=== PATIENT | male | born 1940 | race Two or more races ===

== ENCOUNTER 2018-07-15 11:32 | Inpatient (IN) | payer MEDICARE, OTHER ==
[~2018-07-15] VITALS: Ht 167.6 cm; Wt 62.1 kg
[2018-07-15 15:00] VITALS: BP 106/56
--- NOTE | 2018-07-15 15:00 | NUR ---
m/s wire puller: direct admit received this 78 yr old male pt via w/c accompanied by family and caregiver as a direct admit that was sent by dr. cooper with dx: uti, wounds. awake, alert to self, non-verbal, but able to follow simple directions. reality orientation provided prn. family providing h&p. oriented to room and surroundings. vss. noted with multiple wounds and photos taken. will continue to monitor.
[2018-07-15 16:00] VITALS: BP 106/56
--- NOTE | 2018-07-15 16:30 | NUR ---
m/s compounder helper: Notes all orders carried out and acknowledged. orders faxed to pharmacy.
[2018-07-15] MEDS ORDERED: QUET50TA PO (16:48)
[2018-07-15] MEDS ORDERED: MEMA10TA PO (16:48)
[2018-07-15] MEDS ORDERED: TRAZ300T2 PO (16:48)
[2018-07-15] MEDS ORDERED: ESCI10TA PO (16:48)
[2018-07-15] MEDS ORDERED: SERT100T PO (16:48)
[2018-07-15] MEDS ORDERED: TERB250T52 PO (16:48)
[2018-07-15] MEDS ORDERED: MELA3TAB PO (16:48)
[2018-07-15] MEDS ORDERED: LORA0.5T PO (16:48)
[2018-07-15] MEDS ORDERED: TAMS-12 PO (16:48)
[2018-07-15] MEDS ORDERED: Medication Not On Formulary EA (Melatonin 3 MG) PO SCH (17:00)
--- NOTE | 2018-07-15 17:00 | NUR ---
m/s zinc etcher: notes lab aid at bedside, but unable to draw lab at this time. will send someone later as stated.
[2018-07-15] MEDS ORDERED: ONDANSETRON HCL/PF 4 MG/2 ML VIAL IVP PRN (17:30)
--- NOTE | 2018-07-15 17:55 | NUR ---
M/S LAPEL BASTER: MD VISIT DR. BLISS AT BEDSIDE AT THIS TIME. REMAINS AT BEDSIDE AND UPDATED PLAN OF CARE.
[2018-07-15] MEDS: IV NS 0.9% 1,000 ML IV PRN (17:57)
--- NOTE | 2018-07-15 18:00 | NUR ---
M/S TALENT ACQUISITION ASSOCIATE: NOTES MRSA SUIRVELLANCE TO BOTH NOSTRILS AND SENT TO LAB.
--- NOTE | 2018-07-15 18:10 | NUR ---
M/S HAND MOLDER AND CASTER: NOTES F/C [id number] INSERTED VIA ASEPTIC TECHNIQUE, VERONICA. WELL AND OBTAINED 400ML OF CLEAR YELLOW URINE. F/C TO GRAVITY. REMAINS AT BEDSIDE. WILL CONTINUE TO MONITOR.
[2018-07-15] MEDS: CEFTRIAXONE 1 G in IV D5W 50 ML IV SCH (18:30)
--- NOTE | 2018-07-15 18:30 | NUR ---
M/S METER RECORD CLERK: NOTES TERENCE (PHYSICAL THERAPY RESIDENT) AT BEDSIDE AND STILL UNABLE TO DRAW BLOOD, WILL SEND SOMEONE AGAIN BEFORE 8PM STATED. FAMILY REMAINS AT BEDSIDE. WILL CONTINUE TO MONITOR.
--- NOTE | 2018-07-15 18:50 | NUR ---
m/s butcher's assistant: notes dr. powers and dr. soares notified re: consult.
--- NOTE | 2018-07-15 19:00 | NUR ---
RECIEVED IN BED ALERT TO SELF. FAMILY AT THE BEDSIDE. SMILED WHEN I INTRODUCED MYSELF. IV FLUIDS INFUSING.
--- NOTE | 2018-07-15 19:00 | NUR ---
m/s security systems engineer: notes bedside report given to jose (rn) for continuity of care.
[2018-07-15] MEDS ORDERED: VANCOMYCIN 1 GM in IV D5W 250ml IV ONE (19:30)
[2018-07-15 20:00] VITALS: BP 129/64
[2018-07-15] MEDS ORDERED: FEE PK DOSING 1 MIN EA MC ONE (20:02)
[2018-07-15] MEDS ORDERED: ENOXAPARIN SODIUM 30 MG/0.3 ML DISP.SYRIN SQ SCH (21:00)
[2018-07-15 21:12] LABS: BASOPHILS % (AUTO) 0.3 % (0.0-2.0); EOSINOPHILS % (AUTO) 0.5 % (0.0-6.0); HEMATOCRIT 35 % (39-51); HEMOGLOBIN 11.6 g/dL (13.5-17.5); LYMPHOCYTES # (AUTO) 1.8 /CMM (0.8-4.8); LYMPHOCYTES % (AUTO) 15.6 % (20.0-44.0); MEAN CORPUSCULAR HGB CONC 33 g/dl (31.0-36.0); MEAN CORPUSCULAR VOLUME 90 fL (80-96); MONOCYTES # (AUTO) 0.9 /CMM (0.1-1.30); MONOCYTES % (AUTO) 7.5 % (2.0-12.0); NEUTROPHILS # (AUTO) 8.7 /CMM (1.8-8.9); NEUTROPHILS % (AUTO) 76.1 % (43.0-81.0); PLATELET COUNT (AUTO) 404 /CMM (150-450); RED BLOOD CELL COUNT(AUTO) 3.91 MIL/uL (4.5-6.0); WHITE BLOOD COUNT (AUTO) 11.4 K/uL (4.3-11.0)
[2018-07-15] MEDS: QUETIAPINE FUMARATE 25 MG TABLET PO SCH (21:26)
[2018-07-15] MEDS: TRAZODONE 50 MG TABLET PO SCH (21:26)
[2018-07-15 21:28] LABS: ALANINE AMINOTRANSFERASE 75 U/L (12-78); ALBUMIN 2.4 g/dL (3.4-5.0); ALKALINE PHOSPHATASE 77 U/L (46-116); ASPARTATE AMINOTRANSFERASE 61 U/L (15-37); BILIRUBIN,TOTAL 0.2 mg/dL (0.2-1.0); CALCIUM, SERUM 8.6 mg/dL (8.5-10.1); CARBON DIOXIDE 30 mmol/L (21-32); CHLORIDE 100 mmol/L (98-107); CREATININE 0.9 mg/dL (0.6-1.3); GLUCOSE 119 mg/dL (74-106); POTASSIUM 4.3 mmol/L (3.5-5.1); SODIUM SERUM 134 mmol/L (136-145); TOTAL PROTEIN, SERUM 6.7 g/dL (6.4-8.2); UREA NITROGEN, BLOOD 25 mg/dL (7-18)
[2018-07-15 21:50] LABS: PREALBUMIN 19.7 MG/DL (18.0-35.7)
[2018-07-16 00:41] LABS: APPEARANCE,URINE CLEAR (CLEAR); BILIRUBIN,URINE NEGATIVE (NEGATIVE); BLOOD, URINE TRACE-INTA Ery/uL (NEGATIVE); COLOR,URINE YELLOW (YELLOW); KETONES,URINE NEGATIVE (NEGATIVE); LEUKOCYTE ESTERASE ,URINE NEGATIVE (NEGATIVE); NITRITE, URINE NEGATIVE (NEGATIVE); PROTEIN,URINE NEGATIVE (NEGATIVE); UGLUCOSE NEGATIVE (NEGATIVE); UROBILINOGEN,URINE 0.2 EU/dL (0.2)
[2018-07-16 00:45] LABS: BACTERIA,URINE Few /HPF (None Seen); RBC,URINE 21-50 /HPF (0-2); SQUAMOUS EPITHELIAL CELL,UR Rare /HPF (None Seen)
--- NOTE | 2018-07-16 05:28 | NUR ---
MR. PARSONS HAS SUPPORTIVE AND CHILDREN, THEY WERE AT HIS BEDSIDE AT THE BEGINNING OF THE SHIFT. WHEN OFFERED PATIENT FLUIDS HE PINCHES HIS LIPS TOGETHER. USED A MEDICINE CUP AND WAS ABLE TO CONVINCE HIM TO DRINK AND TAKE HIS CRUSHED MEDICATION. ASPIRATION PRECAUTIONS AT ALL TIMES. AFTER 2 SIPS HE WOULD TURN HIS HEAD AWAY WHEN HE SAW THE CUP . BUI DRAINAGE 1500. HE WILL HOLD ON TO THE BUI CATHETER WHEN HE DISCOVERS THE TUBING. NON VERBAL. ATB ORDERED. MULTIPLE BED SORES THROUGH OUT THE BODY TO BE SEEN BY THE WOUND NURSE ORDER PLACED
[2018-07-16 06:26] LABS: BASOPHILS % (AUTO) 0.2 % (0.0-2.0); EOSINOPHILS % (AUTO) 0.8 % (0.0-6.0); HEMATOCRIT 37 % (39-51); HEMOGLOBIN 12.5 g/dL (13.5-17.5); LYMPHOCYTES # (AUTO) 2.1 /CMM (0.8-4.8); LYMPHOCYTES % (AUTO) 22.2 % (20.0-44.0); MEAN CORPUSCULAR HGB CONC 33 g/dl (31.0-36.0); MEAN CORPUSCULAR VOLUME 89 fL (80-96); MONOCYTES # (AUTO) 0.7 /CMM (0.1-1.30); MONOCYTES % (AUTO) 7.2 % (2.0-12.0); NEUTROPHILS # (AUTO) 6.4 /CMM (1.8-8.9); NEUTROPHILS % (AUTO) 69.6 % (43.0-81.0); PLATELET COUNT (AUTO) 375 /CMM (150-450); RED BLOOD CELL COUNT(AUTO) 4.19 MIL/uL (4.5-6.0); WHITE BLOOD COUNT (AUTO) 9.2 K/uL (4.3-11.0)
[2018-07-16 06:47] LABS: CALCIUM, SERUM 8.8 mg/dL (8.5-10.1); CARBON DIOXIDE 32 mmol/L (21-32); CHLORIDE 102 mmol/L (98-107); CREATININE 0.8 mg/dL (0.6-1.3); GLUCOSE 91 mg/dL (74-106); MAGNESIUM 2.1 mg/dL (1.8-2.4); POTASSIUM 3.9 mmol/L (3.5-5.1); SODIUM SERUM 141 mmol/L (136-145); UREA NITROGEN, BLOOD 18 mg/dL (7-18)
[2018-07-16] MEDS ORDERED: Z GUARD REMEDY 2 OZ OINT TP PRN (07:00)
--- NOTE | 2018-07-16 07:41 | NUR ---
MS RN OPENING NOTES RECEIVED PT LAYING IN BED WITH HOB ELEVATED. PT IS AWAKE, A/OX1 AFEBRILE. RESPIRATIONS ARE EVEN AND UNLABORED, NOT IN ANY ACUTE DISTRESS NOTED. NO FACIAL GRIMACING OR MOANING NOTED. IV SITE TO RIGHT WRIST INTACT, NO INFILTRATION NOTED. DRESSING KEPT CLEAN AND DRY. BUI CATH IN PLACE, TUBING FREE OF KINKS, DRAINING CLEAR ORANGE URINE. SAFETY MEASURES ARE IN PLACE. WILL REPOSITION PER PROTOCOL. INSTRUCTED PT TO USE CALL LIGHT WHEN ASSISTANCE IS NEEDED, CALL LIGHT IS LEFT WITHIN REACH. WILL MONITOR THROUGHOUT SHIFT FOR CONTINUITY OF CARE.
[2018-07-16 07:59] VITALS: BP 117/67
[2018-07-16 08:43] VITALS: BP 117/67
[2018-07-16] MEDS ORDERED: ESCITALOPRAM OXALATE (10 MG) 10 MG TABLET PO SCH (09:00)
[2018-07-16] MEDS: VANCOMYCIN HCL 0.75 GM in IV D5W 250 ML IV SCH ×2 (09:02→20:24)
[2018-07-16] MEDS: IV NS 0.9% 1,000 ML IV PRN (09:03)
[2018-07-16] MEDS: Z GUARD REMEDY 2 OZ OINT TP SCH (09:03)
[2018-07-16] MEDS: SERTRALINE HCL 50 MG TABLET PO SCH ×2 (09:04→17:00)
[2018-07-16] MEDS: TAMSULOSIN 0.4 MG CAP.SR.24H PO SCH (09:04)
[2018-07-16] MEDS: TERBINAFINE HCL 250 MG TABLET PO SCH (09:04)
[2018-07-16] MEDS: MEMANTINE HCL 5 MG TABLET PO SCH ×2 (09:04→17:00)
[2018-07-16] MEDS ORDERED: VANCOMYCIN 1 GM in IV D5W 250 ML IV SCH (14:00)
--- NOTE | 2018-07-16 15:11 | NUR ---
Social service consult requested by Dr. Ramachandran for multiple wounds. Pt. is a 78 year old male who was admitted to [facility] for UTI and wounds. SW met with pt's bedside. Pt's Ruchi is very pleasant and cooperative with SW. Ruchi states pt. resides with her and has been receiving wound care from a home health agency several days per week. According to Ruchi, pt. has dementia and seems to have medically deteriorated in the last few days. She states pt's immune system is very weak, and pt. doesn't eat or sleep well at night. Pt. seems to have a very supportive and family and appears to have a difficult time managing pt's care due to his medical condition. CHRISSY spoke with Dr. Ramachandran who will recommend SNF placement. CHRISSY updated case packer and sealer Anca with the aforementioned information.
[2018-07-16] MEDS: CEFTRIAXONE 1 G in IV D5W 50 ML IV SCH (17:00)
--- NOTE | 2018-07-16 18:27 | NUR ---
MS RN CLOSING NOTES ALL DUE MEDS GIVEN, NEEDS ANTICIPATED. PT IS A/OX1 AFEBRILE. RESPIRATIONS ARE EVEN AND UNLABORED, NOT IN ANY ACUTE DISTRESS NOTED. NO FACIAL GRIMACING OR MOANING NOTED. IV SITE TO RIGHT WRIST INTACT, NO INFILTRATION NOTED. DRESSING KEPT CLEAN AND DRY. BUI CATH IN PLACE, TUBING FREE OF KINKS. DRAINING CLEAR PINK TINGED URINE. SAFETY MEASURES ARE IN PLACE. REPOSITIONED PER PROTOCOL. REMINDED PT TO USE CALL LIGHT, CALL LIGHT IS LEFT WITHIN REACH. BED IS IN ITS LOWEST AND LOCKED POSITION. WILL ENDORSE TO NEXT SHIFT FOR CONTINUITY OF CARE.
[2018-07-16] MEDS: LORAZEPAM 0.5 MG TABLET PO PRN (18:50)
--- NOTE | 2018-07-16 19:40 | NUR ---
MS RN NOTE: PATIENT RESTING IN BED, NO ACUTE DISTRESS NOTED. BREATHING EVEN AND UNLABORED, NO SOB NOTED. IV TO RIGHT WRIST IN PLACE, INFUSING NS AT 75 ML/HR. BUI CATHETER IN PLACE, EMPTY AT THIS TIME. BED LOCKED AND IN LOWEST POSITION, CALL LIGHT IN REACH. WILL CONTINUE TO MONITOR.
[2018-07-16 20:00] VITALS: BP 137/68
[2018-07-16] MEDS: TRAZODONE 50 MG TABLET PO SCH (21:54)
[2018-07-16] MEDS: QUETIAPINE FUMARATE 25 MG TABLET PO SCH (21:54)
[2018-07-16] MEDS: ENOXAPARIN SODIUM 40 MG/0.4 ML DISP.SYRIN SQ SCH (21:56)
[2018-07-16] MEDS ORDERED: SILVER NITRATE APPLICATOR 1 EA BOX TP ONE (23:30)
[2018-07-16] MEDS ORDERED: LIDOCAINE 1%-EPI 1:100,000 20 ML VIAL TP ONE (23:30)
--- NOTE | 2018-07-17 00:30 | NUR ---
MS RN NOTE: NOTED WITH NEW ORDERS TO OBTAIN CONSENT FOR DEBRIDEMENT OF SACRUM/BILATERAL BUTTOCK WOUNDS WITH DR. BROWN AND DR. HAWK. PATIENT UNABLE TO SIGN FOR CONSENT DUE TO MENTAL STATUS. WILL CONTACT FAMILY IN MORNING FOR CONSENT. WILL CONTINUE TO MONITOR.
--- NOTE | 2018-07-17 06:15 | NUR ---
MS RN NOTE: PATIENT RESTING IN BED, NO ACUTE DISTRESS NOTED. BREATHING EVEN AND UNLABORED, NO SOB NOTED. IV TO RIGHT WRIST IN PLACE, INFUSING NS AT 75 ML/HR. BUI CATHETER IN PLACE. BED LOCKED AND IN LOWEST POSITION, CALL LIGHT IN REACH. WILL ENDORSE TO DAY NURSE TO CONTINUE WITH PLAN OF CARE.
[2018-07-17] MEDS ORDERED: HYDROGEL DRESSING 90 GM TUBE TP PRN (07:00)
--- NOTE | 2018-07-17 07:29 | NUR ---
MS RN OPENING NOTES RECEIVED PT LAYING IN BED WITH HOB ELEVATED. PT IS AWAKE AND RESPONSIVE, AFEBRILE. RESPIRATIONS ARE EVEN AND UNLABORED, NOT IN ANY ACUTE DISTRESS NOTED. NO FACIAL GRIMACING OR MOANING NOTED. IV SITE TO RIGHT WRIST INTACT, NO INFILTRATION NOTED. DRESSING KEPT CLEAN AND DRY. BUI CATH IN PLACE, TUBING FREE OF KINKS, DRAINING CLEAR PINK TINGED URINE. SAFETY MEASURES ARE IN PLACE. WILL REPOSITION PER PROTOCOL. INSTRUCTED PT TO USE CALL LIGHT WHEN ASSISTANCE IS NEEDED, CALL LIGHT IS LEFT WITHIN REACH. WILL MONITOR THROUGHOUT SHIFT FOR CONTINUITY OF CARE.
[2018-07-17 07:48] LABS: CALCIUM, SERUM 8.6 mg/dL (8.5-10.1); CARBON DIOXIDE 29 mmol/L (21-32); CHLORIDE 103 mmol/L (98-107); CREATININE 0.6 mg/dL (0.6-1.3); GLUCOSE 90 mg/dL (74-106); POTASSIUM 3.5 mmol/L (3.5-5.1); SODIUM SERUM 141 mmol/L (136-145); UREA NITROGEN, BLOOD 11 mg/dL (7-18)
[2018-07-17 08:00] VITALS: BP 123/71
--- NOTE | 2018-07-17 08:17 | NUR ---
WOUND CARE CONSULT WOUND CARE RECEIVED CONSULT FOR MULTIPLE WOUNDS. WOUND CARE WILL DEFER CONSULT AND ALL TREATMENT PLANS TO PLASTIC SURGICAL TEAM INCLUDING DPM DR NOBLE WHO ARE ALL CURRENTLY FOLLOWING THIS PATIENT. PATIENT WITH TERRANCE AT 12, ALL PRESSURE ULCER PREVENTION MEASURES ARE NOTED TO BE IN PLACE. WILL SEE PRN.
[2018-07-17] MEDS: VANCOMYCIN HCL 0.75 GM in IV D5W 250 ML IV SCH ×2 (08:39→20:05)
[2018-07-17] MEDS: TAMSULOSIN 0.4 MG CAP.SR.24H PO SCH (08:40)
[2018-07-17] MEDS: TERBINAFINE HCL 250 MG TABLET PO SCH (08:40)
[2018-07-17] MEDS: MEMANTINE HCL 5 MG TABLET PO SCH ×2 (08:40→17:42)
[2018-07-17] MEDS: SERTRALINE HCL 50 MG TABLET PO SCH ×2 (08:40→17:42)
[2018-07-17] MEDS: HYDROGEL DRESSING 90 GM TUBE TP SCH (08:41)
[2018-07-17] MEDS: Z GUARD REMEDY 2 OZ OINT TP SCH (08:42)
[2018-07-17] MEDS: IV NS 0.9% 1,000 ML IV PRN (08:45)
[2018-07-17] MEDS: ENSURE ENLIVE CHOC 237 ML CAN PO SCH ×3 (09:16→17:42)
[2018-07-17 15:53] VITALS: BP 119/55
[2018-07-17] MEDS: ACETAMINOPHEN 325 MG TABLET PO PRN (17:56)
[2018-07-17] MEDS: LORAZEPAM 0.5 MG TABLET PO PRN (17:56)
--- NOTE | 2018-07-17 19:45 | NUR ---
MS RN NOTES RECEIVED ON BED A/O X1,SERBIAN SPEAKING,[facility] ON RIGHT EAR PER .IVF IN PROGRESS VIA IVP ON RIGHT WRIST,SITE PATENT.WITH BUI CATH IN PLACE DRAINING PINKISH OUTPUT.ON KCI MATTRESS FOR WOUND MANAGEMENT.NPO STATUS POST MIDNIGHT FOR WOUND DEBRIDEMENT TOMORROW.CONSENT ON CHART.REPOSITION PER PROTOCOL.WILL CONTINUE TO MONITOR STATUS.
[2018-07-17 20:00] VITALS: BP 102/71
[2018-07-17] MEDS: ENOXAPARIN SODIUM 40 MG/0.4 ML DISP.SYRIN SQ SCH (21:00)
[2018-07-17] MEDS: TRAZODONE 50 MG TABLET PO SCH (21:26)
[2018-07-17] MEDS: QUETIAPINE FUMARATE 25 MG TABLET PO SCH (21:26)
[2018-07-18] MEDS: IV NS 0.9% 1,000 ML IV PRN ×2 (01:13→20:42)
--- NOTE | 2018-07-18 06:52 | NUR ---
MS RN NOTES SLEPT WELL WITH TRAZODONE,NO FALL,NO INJURY.IVF IN PROGRESS.BUI CATHETER DRAINS WELL WITH PINKISH URINE OUTPUT.NPO FOR SACRAL WOUND DEBRIDEMENT TODAY.IN NO ACUTE DISTRESS.WILL ENDORSE TO DAY NURSE FOR MARGAUX.
--- NOTE | 2018-07-18 07:25 | NUR ---
MS RN NOTES PATIENT RECEIVED RESTING INSIDE ROOM. SLEEPING, EASILY AROUSABLE THROUGH VERBAL AND TACTILE STIMULI. BREATHING EVEN AND UNLABORED. NO ACUTE DISTRESS AT THIS TIME. NO CHANGES IN LOC NOTED AT THIS TIME. DENIES ANY PAIN OR DISCOMFORT. IV INTACT AND PATENT. WILL CONTINUE TO MONITOR. BED LOCKED AND IN LOW POSITION. BILATERAL UPPER SIDE RAILS UP AND LOCKED. CALL LIGHT WITHIN EASY REACH
[2018-07-18] MEDS: ENSURE ENLIVE CHOC 237 ML CAN PO SCH ×3 (07:53→16:22)
[2018-07-18] MEDS: VANCOMYCIN HCL 0.75 GM in IV D5W 250 ML IV SCH ×2 (07:53→20:15)
[2018-07-18] MEDS: SERTRALINE HCL 50 MG TABLET PO SCH ×2 (08:11→16:22)
[2018-07-18] MEDS: TERBINAFINE HCL 250 MG TABLET PO SCH (08:11)
[2018-07-18] MEDS: MEMANTINE HCL 5 MG TABLET PO SCH ×2 (08:11→16:22)
[2018-07-18] MEDS: TAMSULOSIN 0.4 MG CAP.SR.24H PO SCH (08:11)
[2018-07-18] MEDS: HYDROGEL DRESSING 90 GM TUBE TP SCH (08:12)
[2018-07-18] MEDS: Z GUARD REMEDY 2 OZ OINT TP SCH (08:13)
[2018-07-18 08:30] VITALS: BP 137/90
[2018-07-18 10:34] LABS: CALCIUM, SERUM 8.8 mg/dL (8.5-10.1); CARBON DIOXIDE 32 mmol/L (21-32); CHLORIDE 100 mmol/L (98-107); CREATININE 0.7 mg/dL (0.6-1.3); GLUCOSE 139 mg/dL (74-106); POTASSIUM 3.6 mmol/L (3.5-5.1); SODIUM SERUM 138 mmol/L (136-145); UREA NITROGEN, BLOOD 12 mg/dL (7-18)
--- NOTE | 2018-07-18 11:30 | NUR ---
MS RN NOTES PATIENT SEEN BY DR. EM, WOUND DEBRIDEMENT DONE ON SACRAL/BILATERAL BUTTOCK WOUNDS. PATIENT TOLERATED PROCEDURE WELL. KELLY AT BEDSIDE AND AWARE OF PROCEDURE. S/P DEBRIDEMENT PICTURES TAKEN AND FILED. REPLACED DRESSINGS. KEPT SITES CLEAN AND DRY. WILL CONTINUE TO MONITOR
[2018-07-18 16:00] VITALS: BP 104/66
--- NOTE | 2018-07-18 18:52 | NUR ---
MS RN NOTES PATIENT RESTING INSIDE ROOM. SLEEPING, EASILY AROUSABLE THROUGH VERBAL AND TACTILE STIMULI. BREATHING EVEN AND UNLABORED. NO CHANGES IN LOC NOTED AT THIS TIME. PATIENT ALERT AND ORIENTED X 1, RE-ORIENTED NEEDED. BUI CATHETER IN PLACE. IV INTACT AND PATENT. WILL ENDORSE TO INCOMING SHIFT FOR MARGAUX. BED LOCKED AND IN LOW POSITION. BILATERAL UPPER SIDE RAILS UP AND LOCKED. CALL LIGHT WITHIN EASY REACGH
[2018-07-18] MEDS: ACETAMINOPHEN 325 MG TABLET PO PRN (19:12)
--- NOTE | 2018-07-18 19:26 | NUR ---
MS RN RECEIVE PT IN BED. A/O X 1. CHINESE SPEAKING. RESPIRATIONS EVEN AND UNLABORED, NO SOB NOTED, NO DISTRESS, SAFETY MEASURES IN PLACE. WILL CONTINUE TO MONITOR. Addendum: 07/18/18 at 1943 by SHAHRIAR DELAROSA RN MISTAKEN ENTRY: DISREGARD THIS DOCUMENTATION THIS IS FOR DIFFERENT PT
--- NOTE | 2018-07-18 19:45 | NUR ---
MS RN NOTES RECEIVED ON BED RESTLESS,A/O X1,CONFUSED,TRYING TO GET OUT OF BED,BUI CATH IN PLACE DRAINING BLOOD TINGED OUTPUT.SALINE LOCK RIGHT WRIST INTACT AND PATENT,NS AT 35ML/HR RATE IN PROGRESS.S/P WOUND DEBRIDEMENT ON SACRAL AREA,KCI MATTRESS IN USED FOR WOUND MANAGEMENT.WILL CONTINUE TO MONITOR STATUS.
[2018-07-18 20:00] VITALS: BP 111/70
--- NOTE | 2018-07-18 20:00 | NUR ---
MS RN NOTES TRYING TO PULL OUT HIS BUI,MITTENS APPLIED ON BOTH HANDS,WILL GET ORDER.
[2018-07-18] MEDS: LORAZEPAM 0.5 MG TABLET PO PRN (20:17)
--- NOTE | 2018-07-18 20:17 | NUR ---
MS RN NOTES RESTLESS,ATIVAN 0.5MG PO GIVEN WITH MILK,TAKEN WELL.FALL PRECAUTION OBSERVED.
[2018-07-18 20:33] VITALS: BP 111/70
[2018-07-18] MEDS: TRAZODONE 50 MG TABLET PO SCH (21:24)
[2018-07-18] MEDS: ENOXAPARIN SODIUM 40 MG/0.4 ML DISP.SYRIN SQ SCH (21:24)
[2018-07-18] MEDS: QUETIAPINE FUMARATE 25 MG TABLET PO SCH (21:25)
--- NOTE | 2018-07-19 02:00 | NUR ---
MS RN NOTES CALM AND QUIET THIS TIME,TRAZODONE EFFECTIVE ALONG WITH SEROQUEL.HAND MITTENS REMOVED THIS TIME.
--- NOTE | 2018-07-19 06:28 | NUR ---
MS RN NOTES IVF IN PROGRESS,REPOSITION PER PROTOCOL,ACCEPTED AT [facility].IN NO ACUTE DISTRESS.
--- NOTE | 2018-07-19 07:55 | NUR ---
MS RN NOTES PATIENT RECEIVED RESTING INSIDE ROOM. AWAKE, ALERT AND ORIENTED TO SELF. HAITIAN SPEAKING ONLY. PATIENT VERBALLY RESPONSIVE AND RESPONDS TO VERBAL AND TACTILE STIMULI. PATIENT REORIENTED NEEDED. BREATHING EVEN AND UNLABORED. NO ACUTE DISTRESS AT THIS TIME. BILATERAL MITTENS IN PLACE. BUI CATHETER IN PLACE. WILL CONTINUE TO MONITOR. BED LOCKED AND IN LOW POSITION. BED ALARM ON. BILATERAL UPPER SIDE RAILS UP AND LOCKED. CALL LIGHT WITHIN EASY REACH
[2018-07-19 08:00] VITALS: BP 126/85
[2018-07-19 08:10] LABS: BASOPHILS % (AUTO) 0.3 % (0.0-2.0); EOSINOPHILS % (AUTO) 3.9 % (0.0-6.0); HEMATOCRIT 39 % (39-51); HEMOGLOBIN 13.1 g/dL (13.5-17.5); LYMPHOCYTES # (AUTO) 1.9 /CMM (0.8-4.8); LYMPHOCYTES % (AUTO) 17.3 % (20.0-44.0); MEAN CORPUSCULAR HGB CONC 33 g/dl (31.0-36.0); MEAN CORPUSCULAR VOLUME 90 fL (80-96); MONOCYTES # (AUTO) 0.9 /CMM (0.1-1.30); MONOCYTES % (AUTO) 8.1 % (2.0-12.0); NEUTROPHILS # (AUTO) 7.6 /CMM (1.8-8.9); NEUTROPHILS % (AUTO) 70.4 % (43.0-81.0); PLATELET COUNT (AUTO) 351 /CMM (150-450); RED BLOOD CELL COUNT(AUTO) 4.37 MIL/uL (4.5-6.0); WHITE BLOOD COUNT (AUTO) 10.8 K/uL (4.3-11.0)
[2018-07-19] MEDS: TAMSULOSIN 0.4 MG CAP.SR.24H PO SCH (08:19)
[2018-07-19] MEDS: MEMANTINE HCL 5 MG TABLET PO SCH ×2 (08:19→17:04)
[2018-07-19] MEDS: VANCOMYCIN HCL 0.75 GM in IV D5W 250 ML IV SCH ×2 (08:20→20:29)
[2018-07-19] MEDS: SERTRALINE HCL 50 MG TABLET PO SCH ×2 (08:20→17:04)
[2018-07-19] MEDS: TERBINAFINE HCL 250 MG TABLET PO SCH (08:20)
[2018-07-19] MEDS: ENSURE ENLIVE CHOC 237 ML CAN PO SCH ×3 (08:20→17:04)
[2018-07-19] MEDS: HYDROGEL DRESSING 90 GM TUBE TP SCH (08:21)
[2018-07-19] MEDS: Z GUARD REMEDY 2 OZ OINT TP SCH (08:21)
[2018-07-19 08:34] LABS: CALCIUM, SERUM 8.9 mg/dL (8.5-10.1); CARBON DIOXIDE 31 mmol/L (21-32); CHLORIDE 103 mmol/L (98-107); CREATININE 0.7 mg/dL (0.6-1.3); GLUCOSE 94 mg/dL (74-106); POTASSIUM 3.9 mmol/L (3.5-5.1); SODIUM SERUM 141 mmol/L (136-145); UREA NITROGEN, BLOOD 13 mg/dL (7-18)
[2018-07-19] MEDS: ACETAMINOPHEN 325 MG TABLET PO PRN (11:22)
[2018-07-19 16:07] VITALS: BP 118/59
--- NOTE | 2018-07-19 18:26 | NUR ---
MS RN NOTES PATIENT RESTING INSIDE ROOM. AWAKE, ALERT AND ORIENTED TO SELF. REORIENTED NEEDED. BREATHING EVEN AND UNLABORED. DENIES ANY PAIN OR DISCOMFORT AT THIS TIME. NO ACUTE DISTRESS NOTED. BILATERAL MITTENS IN PLACE DUE TO PATIENT REMOVING LINES AND EQUIPMENT. SKIN CHECKS DONE. IV INTACT AND PATENT. PATIENT KEPT CLEAN, DRY AND COMFORTABLE. WILL ENDORSE TO INCOMING SHIFT FOR MARGAUX. BED LOCKED AND IN LOW POSITION. BILATERAL UPPER SIDE RAILS UP AND LOCKED. CALL LIGHT WITHIN EASY REACH
--- NOTE | 2018-07-19 19:30 | NUR ---
MS RN NOTE: PATIENT RESTING IN BED, NO ACUTE DISTRESS NOTED. BREATHING EVEN AND UNLABORED, NO SOB NOTED. IV TO RIGHT WRIST IN PLACE, INFUSING NS AT 35 ML/HR. BUI CATHETER IN PLACE, EMPTY AT THIS TIME. BILATERAL MITTENS IN PLACE, WITH GOOD CIRCULATION NOTED. BED LOCKED AND IN LOWEST POSITION, CALL LIGHT IN REACH. WILL CONTINUE TO MONITOR.
[2018-07-19 20:00] VITALS: BP 102/64
[2018-07-19] MEDS: ENOXAPARIN SODIUM 40 MG/0.4 ML DISP.SYRIN SQ SCH (21:21)
[2018-07-19] MEDS: QUETIAPINE FUMARATE 25 MG TABLET PO SCH (21:21)
[2018-07-19] MEDS: TRAZODONE 50 MG TABLET PO SCH (21:22)
--- NOTE | 2018-07-19 23:30 | NUR ---
MS RN NOTE: PATIENT IV NOTED LEAKING, REMOVED, COVERED WITH GAUZE, PRESSURE APPLIED, AND SECURED WITH TAPE. NEW IV STARTED TO RIGHT FOREARM #22 WITH GOOD BLOOD RETURN. WILL CONTINUE TO MONITOR.
[2018-07-20] MEDS: IV NS 0.9% 1,000 ML IV PRN (03:55)
--- NOTE | 2018-07-20 06:05 | NUR ---
MS RN NOTE: PATIENT RESTING IN BED, NO ACUTE DISTRESS NOTED. BREATHING EVEN AND UNLABORED, NO SOB NOTED. IV TO RIGHT FOREARM IN PLACE, INFUSING NS AT 35 ML/HR. BUI CATHETER IN PLACE. BILATERAL MITTENS IN PLACE, WITH GOOD CIRCULATION NOTED. BED LOCKED AND IN LOWEST POSITION, CALL LIGHT IN REACH. WILL ENDORSE TO DAY NURSE TO CONTINUE WITH PLAN OF CARE.
[2018-07-20 07:30] LABS: BASOPHILS % (AUTO) 0.2 % (0.0-2.0); HEMATOCRIT 36 % (39-51); LYMPHOCYTES # (AUTO) 1.9 /CMM (0.8-4.8); LYMPHOCYTES % (AUTO) 18.5 % (20.0-44.0); MEAN CORPUSCULAR HGB CONC 33 g/dl (31.0-36.0); MEAN CORPUSCULAR VOLUME 90 fL (80-96); MONOCYTES # (AUTO) 0.8 /CMM (0.1-1.30); MONOCYTES % (AUTO) 8.1 % (2.0-12.0); NEUTROPHILS # (AUTO) 7.1 /CMM (1.8-8.9); NEUTROPHILS % (AUTO) 69.2 % (43.0-81.0); PLATELET COUNT (AUTO) 348 /CMM (150-450); RED BLOOD CELL COUNT(AUTO) 4.05 MIL/uL (4.5-6.0); WHITE BLOOD COUNT (AUTO) 10.2 K/uL (4.3-11.0)
[2018-07-20 07:35] LABS: CALCIUM, SERUM 8.5 mg/dL (8.5-10.1); CARBON DIOXIDE 30 mmol/L (21-32); CHLORIDE 102 mmol/L (98-107); CREATININE 0.7 mg/dL (0.6-1.3); GLUCOSE 92 mg/dL (74-106); POTASSIUM 3.9 mmol/L (3.5-5.1); SODIUM SERUM 138 mmol/L (136-145); UREA NITROGEN, BLOOD 14 mg/dL (7-18)
[2018-07-20 08:11] VITALS: BP 115/76
[2018-07-20] MEDS: VANCOMYCIN HCL 0.75 GM in IV D5W 250 ML IV SCH ×2 (08:43→19:51)
[2018-07-20] MEDS: TERBINAFINE HCL 250 MG TABLET PO SCH (08:59)
[2018-07-20] MEDS: ENSURE ENLIVE CHOC 237 ML CAN PO SCH ×3 (08:59→18:20)
[2018-07-20] MEDS: TAMSULOSIN 0.4 MG CAP.SR.24H PO SCH (08:59)
[2018-07-20] MEDS: MEMANTINE HCL 5 MG TABLET PO SCH ×2 (08:59→18:21)
[2018-07-20] MEDS: SERTRALINE HCL 50 MG TABLET PO SCH ×2 (09:00→18:21)
[2018-07-20] MEDS: Z GUARD REMEDY 2 OZ OINT TP SCH (09:02)
[2018-07-20] MEDS: HYDROGEL DRESSING 90 GM TUBE TP SCH (09:02)
[2018-07-20 16:00] VITALS: BP 112/52
--- NOTE | 2018-07-20 18:30 | NUR ---
DR. BLISS,DR. PEDRO IN TO SEE PT. FAMILY IN X2 TO VISIT TODAY.
--- NOTE | 2018-07-20 19:33 | NUR ---
MS RN NOTES RECEIVED ON BED,ON SITTING POSITION,BREATHING NON LABORED,IVF NS AT 35ML/HR RATE IN PROGRESS ON RIGHT WRIST,WITH BILATERAL HAND MITTENS FOR SAFETY/AVOID INJURY,TRYING TO PULLOUT BUI CATHETER.BUI CATH IN PLACE DRAINING CLEAR YELLOW OUTPUT.KCI MATTRESS IN USED FOR WOUND MANAGEMENT.SACRAL WOUND DRESSING/MEPILEX INTACT AND DRY.FALL PRECAUTION OBSERVED.BED ON LOWEST POSITION AND LOCKED.BED ALARM TRIGGERED.WILL CONTINUE TO MONITOR STATUS.
--- NOTE | 2018-07-20 19:58 | NUR ---
RN NOTES VANCO TROUGH AT 1900 WAS 14,DOSE ADMINISTERED
[2018-07-20 20:00] VITALS: BP 121/75
[2018-07-20] MEDS: ENOXAPARIN SODIUM 40 MG/0.4 ML DISP.SYRIN SQ SCH (20:41)
[2018-07-20] MEDS: ACETAMINOPHEN 325 MG TABLET PO PRN (22:04)
[2018-07-20] MEDS: QUETIAPINE FUMARATE 25 MG TABLET PO SCH (22:04)
[2018-07-20] MEDS: TRAZODONE 50 MG TABLET PO SCH (22:04)
--- NOTE | 2018-07-21 06:15 | NUR ---
MS RN NOTES SLEPT WELL AT NIGHT WITH TRAZODONE,COMPLIANT WITH MEDS,BILATERAL MITTENS IN USED FOR SAFETY.IVF IN PROGRESS,BUI CATH IN PLACE,IN NO ACUTE DISTRESS.WILL ENDORSE TO DAY NURSE FOR MARGAUX.
[2018-07-21 07:40] LABS: BASOPHILS % (AUTO) 0.3 % (0.0-2.0); EOSINOPHILS % (AUTO) 2.9 % (0.0-6.0); HEMATOCRIT 33 % (39-51); HEMOGLOBIN 11.2 g/dL (13.5-17.5); LYMPHOCYTES # (AUTO) 1.8 /CMM (0.8-4.8); LYMPHOCYTES % (AUTO) 18.3 % (20.0-44.0); MEAN CORPUSCULAR HGB CONC 34 g/dl (31.0-36.0); MEAN CORPUSCULAR VOLUME 90 fL (80-96); MONOCYTES # (AUTO) 0.8 /CMM (0.1-1.30); MONOCYTES % (AUTO) 8.4 % (2.0-12.0); NEUTROPHILS # (AUTO) 6.7 /CMM (1.8-8.9); NEUTROPHILS % (AUTO) 70.1 % (43.0-81.0); PLATELET COUNT (AUTO) 327 /CMM (150-450); RED BLOOD CELL COUNT(AUTO) 3.69 MIL/uL (4.5-6.0); WHITE BLOOD COUNT (AUTO) 9.6 K/uL (4.3-11.0)
[2018-07-21 07:52] LABS: CALCIUM, SERUM 8.5 mg/dL (8.5-10.1); CARBON DIOXIDE 31 mmol/L (21-32); CHLORIDE 103 mmol/L (98-107); CREATININE 0.7 mg/dL (0.6-1.3); GLUCOSE 96 mg/dL (74-106); POTASSIUM 3.7 mmol/L (3.5-5.1); SODIUM SERUM 140 mmol/L (136-145); UREA NITROGEN, BLOOD 13 mg/dL (7-18)
[2018-07-21 08:00] VITALS: BP 137/63
--- NOTE | 2018-07-21 08:00 | NUR ---
RN NOTES RECEIVED PATIENT IN THE BED A/O X1, CONFUSED. PATIENT HAS NO ACUTE RESPIRATORY DISTRESS, V/S STABLE. PATIENT ON MITTENS RESTRAIN FOR TRYING REMOVE F/C CHECKED Q 2 HR FOR CIRCULATION. PATIENT HAS A MULTIPLE WOUNDS, DRESSING CHANGED. PATIENT FEEDER. ADMINISTERED MEDICATION BY CRUSHED, AND MIXED WITH APPLE SAUCE. ASSIST TURN AND REPOSTION Q 2 HR. F/C DRAIN LIGHT YELLOW OUTPUT. IV ON RIGHT FA INTACT INFUSING NS AT 35 ML/HR. NEEDS RENDERED, CALL LIGHT WITHIN TO REACH. CONTINUED MONITORING.
[2018-07-21] MEDS: TAMSULOSIN 0.4 MG CAP.SR.24H PO SCH (09:59)
[2018-07-21] MEDS: VANCOMYCIN HCL 0.75 GM in IV D5W 250 ML IV SCH ×2 (09:59→21:19)
[2018-07-21] MEDS: SERTRALINE HCL 50 MG TABLET PO SCH ×2 (09:59→17:11)
[2018-07-21] MEDS: MEMANTINE HCL 5 MG TABLET PO SCH ×2 (09:59→17:11)
[2018-07-21] MEDS: ENSURE ENLIVE CHOC 237 ML CAN PO SCH ×3 (09:59→17:12)
[2018-07-21] MEDS: HYDROGEL DRESSING 90 GM TUBE TP SCH (10:00)
--- NOTE | 2018-07-21 10:00 | NUR ---
RN NOTES PATIENT IN THE BED STABLE, SEEN BY Dr. BLISS. NO NEW ORDERS. FAMILY NEXT TO THE BED, ASSIST TURN AND REPOSTION Q 2 HR. CONTINUED MONITORING.
[2018-07-21] MEDS: Z GUARD REMEDY 2 OZ OINT TP SCH (10:01)
[2018-07-21] MEDS: TERBINAFINE HCL 250 MG TABLET PO SCH (10:09)
[2018-07-21 16:00] VITALS: BP 116/76
--- NOTE | 2018-07-21 17:00 | NUR ---
RN NOTES PATIENT STABLE, SCHEDULED MEDICATION ADMINISTERED, PATIENT REFUSED PAIN AT THIS TIME. SCHEDULED MEDICATION ADMINISTERED, V/S STABLE. CHECKED MITTENS RESTRAIN FOR CIRCULATION Q 2 HR. ASSIST TURN AND REPOSTION Q 2 HR.
--- NOTE | 2018-07-21 18:30 | NUR ---
RN NOTES PATIENT HAS NO ACUTE RESPIRATORY DISTRESS ON ROOM AIR, V/S STABLE. F/C DRAIN LIGHT YELLOW OUTPUT. ENDORSED ONCOMING NURSE FOR PLAN OF CARE.
[2018-07-21 20:12] VITALS: BP 133/68
[2018-07-21] MEDS: TRAZODONE 50 MG TABLET PO SCH (21:28)
[2018-07-21] MEDS: QUETIAPINE FUMARATE 25 MG TABLET PO SCH (21:28)
[2018-07-21] MEDS: ENOXAPARIN SODIUM 40 MG/0.4 ML DISP.SYRIN SQ SCH (21:30)
--- NOTE | 2018-07-22 06:00 | NUR ---
PT ALERT BUT CONFUSED, FRISIAN SPEAKING, AND INCOHERENT .DECUB DRESSING CHANGED AND PICTURES OBTAINED, CONTINUE WITH ANMTIBIOTICS, MEDS TAKEN CRUSHED WITH APPLE SAUCE. SMALL BM, ,BUI DRAINING CLEAR YELLOW, ALL NEEDS ATTENDED, VSS,AFEBRILE
[2018-07-22 06:42] LABS: CALCIUM, SERUM 8.6 mg/dL (8.5-10.1); CARBON DIOXIDE 30 mmol/L (21-32); CHLORIDE 102 mmol/L (98-107); CREATININE 0.7 mg/dL (0.6-1.3); GLUCOSE 96 mg/dL (74-106); POTASSIUM 3.5 mmol/L (3.5-5.1); SODIUM SERUM 139 mmol/L (136-145); UREA NITROGEN, BLOOD 13 mg/dL (7-18)
[2018-07-22 07:46] VITALS: BP 108/69
[2018-07-22 08:00] VITALS: BP 108/69
--- NOTE | 2018-07-22 08:00 | NUR ---
RN NOTES PATIENT IN THE BED, RESTING, QUIET, NO ACUTE RESPIRATORY DISTRESS, ASSIST EATING TOLERATED BREAKFAST 30 %, SCHEDULED MEDICATION ADMINISTERED, V/S STABLE. ASSIST TURN AND REPOSTION Q 2 HR. DRESSING CHANGED. PATIENT HAS A MITTENS RESTRAIN FOR NOT PULLING BUI, CHECKED Q 2 HR FOR CIRCULATION . CALL LIGHT WITHIN TO REACH. CONTINUED MONITORING.
[2018-07-22] MEDS: VANCOMYCIN HCL 0.75 GM in IV D5W 250 ML IV SCH ×2 (08:10→19:55)
[2018-07-22] MEDS: ENSURE ENLIVE CHOC 237 ML CAN PO SCH ×3 (08:12→16:37)
[2018-07-22] MEDS: TAMSULOSIN 0.4 MG CAP.SR.24H PO SCH (08:32)
[2018-07-22] MEDS: MEMANTINE HCL 5 MG TABLET PO SCH ×2 (08:32→16:38)
[2018-07-22] MEDS: SERTRALINE HCL 50 MG TABLET PO SCH ×2 (08:33→16:38)
[2018-07-22] MEDS: HYDROGEL DRESSING 90 GM TUBE TP SCH (08:33)
[2018-07-22] MEDS: Z GUARD REMEDY 2 OZ OINT TP SCH (08:34)
[2018-07-22] MEDS: TERBINAFINE HCL 250 MG TABLET PO SCH (08:37)
--- NOTE | 2018-07-22 10:40 | NUR ---
RN NOTES CONSENT WAS SIGNED BY , PER SURGEON KEVIN LARA'S ORDER, FOR LEFT HIP, AND LEFT BUTTOCK WOUND DEBRIDEMENT. ASSIST MD BEDSIDE WOUND DEBRIDEMENT. APPLIED NEW DRESSING, ASSIST PATIENT TURN AND REPOSTION Q 2 HR. NEXT TO THE BEDSIDE. CONTINUED MONITORING.
[2018-07-22] MEDS ORDERED: LIDOCAINE 1%-EPI 1:100,000 20 ML VIAL TP ONE (11:00)
--- NOTE | 2018-07-22 13:00 | NUR ---
RN NOTES PATIENT WITH PT, ASSISTING TO GET OUT OF BED. NEXT TO THE BED. ASSIST EATING LUNCH, PATIENT TOLERATED WELL. CONTINUED MONITORING.
[2018-07-22 16:00] VITALS: BP 105/64
[2018-07-22] MEDS: ACETAMINOPHEN 325 MG TABLET PO PRN (16:38)
--- NOTE | 2018-07-22 16:38 | NUR ---
RN NOTES ADMINISTERED TYLENOL 650 MG PO PRN FOR GENERALIZED PAIN 09/13. CONTINUED MONITORING.
--- NOTE | 2018-07-22 18:30 | NUR ---
RN NOTES PATIENT STABLE, MEDICATION WERE ADMINISTERED FOR PAIN EFFECTIVE. ASSIST TURN AND REPOSTION Q 2 HR. NEEDS RENDERED. PATIENT ON MITTENS RETRAIN CHECKED FOR CIRCULATION. V/S STABLE. BED ALARM ON. SAFETY PRECAUTION MAINTAINED ALL THE TIME. ENDORSED ONCOMING NURSE FOR PLAN OF CARE.
--- NOTE | 2018-07-22 19:30 | NUR ---
ANTHONY MS OPENING NOTES RECEIVED PATIENT IN BED AWARE, ALERT AND ORIENTED X1, VERBALLY RESPONSIVE, CONFUSED. LAO SPEAKING. BREATHING EVEN AND UNLABORED. NO SOB NOTED. ON 2LPM OXYGEN VIA NC. NO S/S OF PAIN OR DISCOMFORT. NO FACIAL GRIMACING. IV ON RIGHT FOREARM INTACT AND PATENT. SKIN DRY AND WARM TO TOUCH. AFEBRILE. BUI CATH INTACT AND DRAINING PENNIE COLORED URINE. PATIENT ALSO NOTED WITH BILATERAL MITTEN RESTRAINTS DUE TO ATTEMPTING TO PULL OUT TUBES/LINES. DRESSINGS INTACT AND DRY. ALL OTHER NEEDS ATTENDED TO. SAFETY MEASURES IN PLACE. CALL LIGHT WITHIN REACH. WILL CONTINUE TO MONITOR. Addendum: 07/23/18 at 0650 by KENY GOFF RN ERROR: PATIENT ON ROOM AIR. TOLERATING WELL.
[2018-07-22 20:00] VITALS: BP 106/61
[2018-07-22] MEDS: QUETIAPINE FUMARATE 25 MG TABLET PO SCH (21:17)
[2018-07-22] MEDS: TRAZODONE 50 MG TABLET PO SCH (21:17)
[2018-07-22] MEDS: ENOXAPARIN SODIUM 40 MG/0.4 ML DISP.SYRIN SQ SCH (21:18)
--- NOTE | 2018-07-23 06:48 | NUR ---
RN MS CLOSING NOTES PATIENT RESTING IN BED. NO ACUTE CHANGES THROUGHOUT SHIFT. BREATHING EVEN AND UNLABORED. NO SOB NOTED. TOLERATING ROOM AIR. NO S/S OF PAIN OR DISCOMFORT. NO FACIAL GRIMACING. IV ON RIGHT FOREARM INTACT AND PATENT. SKIN DRY AND WARM TO TOUCH. AFEBRILE. BUI CATH INTACT AND DRAINING PENNIE COLORED URINE. BILATERAL MITTEN RESTRAINTS IN PLACE DUE TO ATTEMPTING TO PULL OUT TUBES/LINES. DRESSINGS INTACT AND DRY. ALL OTHER NEEDS ATTENDED TO. SAFETY MEASURES IN PLACE. CALL LIGHT WITHIN REACH. WILL ENDORSE TO ONCOMING NURSE FOR MARGAUX.
[2018-07-23 06:49] LABS: CARBON DIOXIDE 32 mmol/L (21-32); CHLORIDE 102 mmol/L (98-107); CREATININE 0.7 mg/dL (0.6-1.3); GLUCOSE 97 mg/dL (74-106); POTASSIUM 4.1 mmol/L (3.5-5.1); SODIUM SERUM 141 mmol/L (136-145); UREA NITROGEN, BLOOD 17 mg/dL (7-18)
--- NOTE | 2018-07-23 07:30 | NUR ---
MS RN NOTES PATIENT RECEIVED RESTING INSIDE ROOM. AWAKE, ALERT AND ORIENTED TO SELF. VERBALLY RESPONSIVE AND RESPONDS TO VERBAL AND TACTILE STIMULI. BREATHING EVEN AND UNLABORED. NO ACUTE DISTRESS. DENIES ANY PAIN OR DISCOMFORT. BILATERAL HAND MITTENS IN PLACE. SKIN CHECKS DONE. IV INTACT AND PATENT. BUI CATHETER IN PLACE WITH PENNIE COLORED URINE OUTPUT NOTED. WILL CONTINUE TO MONITOR. BED LOCKED AND IN LOW POSITION. BILATERAL UPPER SIDE RAILS UP AND LOCKED. CALL LIGHT WITHIN EASY REACH
[2018-07-23 08:00] VITALS: BP 127/54
[2018-07-23] MEDS: MEMANTINE HCL 5 MG TABLET PO SCH (09:19)
[2018-07-23] MEDS: ENSURE ENLIVE CHOC 237 ML CAN PO SCH ×2 (09:19→12:07)
[2018-07-23] MEDS: VANCOMYCIN HCL 0.75 GM in IV D5W 250 ML IV SCH (09:19)
[2018-07-23] MEDS: SERTRALINE HCL 50 MG TABLET PO SCH (09:19)
[2018-07-23] MEDS: TAMSULOSIN 0.4 MG CAP.SR.24H PO SCH (09:19)
[2018-07-23] MEDS: TERBINAFINE HCL 250 MG TABLET PO SCH (09:19)
[2018-07-23] MEDS: HYDROGEL DRESSING 90 GM TUBE TP SCH (09:20)
[2018-07-23] MEDS: Z GUARD REMEDY 2 OZ OINT TP SCH (09:20)
--- NOTE | 2018-07-23 12:30 | NUR ---
MS RN NOTES PLACED CALL TO [facility] ([phone]) AND GAVE REPORT TO KAMLESH CRUZ. KELLY AT BEDSIDE AND AWARE OF DISCHARGE. WILL CONTINUE TO MONITOR
--- NOTE | 2018-07-23 15:27 | NUR ---
MS RN NOTES HOME MEDICATIONS (MELATONIN, TERBINAFINE) OBTAINED FROM PHARMACY AND GIVEN TO KELLY
--- NOTE | 2018-07-23 16:02 | NUR ---
MS RN NOTES PATIENT DISCHARGED TODAY. DISCHARGE INSTRUCTIONS AND EDUCATION GIVEN TO PATIENT AND KELLY AND VERBALIZED UNDERSTANDING. NO MISSING BELONGINGS REPORTED. IV REMOVED WITH MINIMAL BLEEDING NOTED, PRESSURE DRESSING PLACED ON SITE. PATIENT LEFT UNIT VIA GURNEY IN STABLE CONDITION. BUI CATHETER IN PLACE WITH YELLOW URINE OUTPUT NOTED. NO NEW SKIN BREAKDOWN ON DISCHARGE. MD AWARE OF DISCHARGE
== END 2018-07-23 15:55 | DRG 853 ==
LOC: MED 14:47
PROVIDERS: ADMIT Legal Medicine; ATTEND Legal Medicine
PROC: 0JB90ZZ Excision of Buttock Subcutaneous Tissue and Fascia, Open Approach (ICD-10-PCS; principal; 2018-07-18)
PROC: 0KBP0ZZ Excision of Left Hip Muscle, Open Approach (ICD-10-PCS; 2018-07-18)
PROC: 0KBN0ZZ Excision of Right Hip Muscle, Open Approach (ICD-10-PCS; 2018-07-18)
PROC: 0KBP0ZZ Excision of Left Hip Muscle, Open Approach (ICD-10-PCS; 2018-07-22)
PROC: 0KBN0ZZ Excision of Right Hip Muscle, Open Approach (ICD-10-PCS; 2018-07-22)
DX: A41.9 Sepsis, unspecified organism (principal); L89.324 Pressure ulcer of left buttock, stage 4; L89.314 Pressure ulcer of right buttock, stage 4; L89.154 Pressure ulcer of sacral region, stage 4; E43 Unspecified severe protein-calorie malnutrition; G93.41 Metabolic encephalopathy; R53.2 Functional quadriplegia; N39.0 Urinary tract infection, site not specified; F32.9 Major depressive disorder, single episode, unspecified; F41.9 Anxiety disorder, unspecified; F03.90 Unspecified dementia, unspecified severity, without behavioral disturbance, psychotic disturbance, mood disturbance, and anxiety; I10 Essential (primary) hypertension; I25.10 Atherosclerotic heart disease of native coronary artery without angina pectoris; R62.7 Adult failure to thrive; M19.90 Unspecified osteoarthritis, unspecified site; Z79.899 Other long term (current) drug therapy; L89.621 Pressure ulcer of left heel, stage 1
CPT/HCPCS: 36415; 71045-TC; 72170-TC; 73560-TC; 80048-TC; 80053-TC; 80202-TC; 81000-TC; 83735-TC; 84134-TC; 84443-TC; 85025-TC; 85610-TC; 85730-TC; 87040-TC; 87081-TC; 87086-TC; 97110-TC; 97112-TC; 97530-TC; A6248; A6253; A6402; A6403; G0378; J0696; J1650; J3370; J3490; J7030; J7060